=== PATIENT | male | born 1990 | race Native Hawaiian/Other Pacific Islander ===

== ENCOUNTER 2016-05-08 18:41 | Emergency (ER) | payer OTHER ==
[~2016-05-08] VITALS: Ht 190.5 cm; Wt 71.7 kg
[2016-05-08 20:46] LABS: PLATELET COUNT 138 K/uL (142-355)
[2016-05-08 20:59] LABS: POTASSIUM 3.5 mmol/L (3.6-5.2); SODIUM 136 mmol/L (136-145)
[2016-05-08 21:35] VITALS: BP 128/80; TEMP 98.1
== END 2016-05-08 21:35 | disposition home or self-care (01) ==
LOC: ED 18:41
PROVIDERS: Specialist
DX: K22.6 Gastro-esophageal laceration-hemorrhage syndrome (principal); R10.9 Unspecified abdominal pain; M79.1 Myalgia
CPT/HCPCS: 36415; 43754; 80048; 85027; 87804; 96374; 96375; 99284; J2405; J3490